=== PATIENT | female | born 1945 | race Caucasian/White ===

== ENCOUNTER 2024-08-10 12:57 | Outpatient (REF) | payer MEDICARE, SELFPAY ==
--- OUTSIDE RECORDS SUMMARY | 2024-08-10 13:04 | XMS_ITS | Encounter Summary ---
Author Organization [facility], Address [address] [place] [address] Phone Care Team Providers Care Channeler Outsole Name Role Phone Terrell Bull SILO MAN Primary Care Provider [phone] Encounter Details Date Type Department Care Team (Late st Contact Info) Description 06/05/2023 Documentation Only [facility], [address] [place] [address] Lizzie Anthony [address] [place] [phone] Social History Tobacco Use Types Packs/Day Years Used Date Smoking Tobacco: Never Assessed Comments Unknown Sex and Gender Information Value Date Recorded Sex Assigned at Not on file Legal Sex Female 11:20 AM EDT Gender Identity Not on file Sexual Orientation Not on file documented as of this encounter Plan of Treatment Not on file documented as of this encounter Visit Diagnoses Not on filedocumented in this encounter Care Teams Channeler Outsole Relationship Specialty Start Date End Date Terrell Bull NP [address] [place] [id number] PCP - General Nurse Practitioner 06/05/23 documented as of this encounter
[2024-08-10 15:49] LABS: Vitamin B12 715 pg/mL (200-900)
== END 2024-08-10 12:58 | disposition home or self-care (01) ==
LOC: HO.LAB 12:57
PROVIDERS: Psychiatry & Neurology Neurology; PCP Internal Medicine; Visit Provider Internal Medicine
DX: F03.90 Unspecified dementia, unspecified severity, without behavioral disturbance, psychotic disturbance, mood disturbance, and anxiety (principal)
CPT/HCPCS: 36415; 82607

== ENCOUNTER → 2024-08-19 06:32 | Outpatient (BNV) | payer MEDICARE, SELFPAY | PROVIDERS: Visit Provider Radiology Vascular & Interventional Radiology | DX: G93.89 Other specified disorders of brain (principal); I67.82 Cerebral ischemia | CPT/HCPCS: 70551 ==

== ENCOUNTER 2024-08-19 07:23 | Outpatient (REF) | payer MEDICARE, SELFPAY ==
--- NOTE | ~2024-08-19 | MR_ITS ---
CLINICAL HISTORY: MULTIFACTORIAL DEMENTIA MR Brain without gadolinium Comparison: None Findings: No restricted diffusion. No intra-axial mass or hemorrhage. No midline shift. No hydrocephalus. Vascular flow voids are intact. Moderate diffuse volume loss. Prominent patchy and confluent T2 signal prolongation within the white matter. The orbits are normal. The sinuses and mastoid air cells are clear. No focal bone lesion. IMPRESSION: No acute findings. Diffuse volume loss and moderately severe ischemic microangiopathy. This document has been electronically signed by: Nikhil Santacruz MD on 08/19/2024 11:10:16
== END 2024-08-19 07:24 | disposition home or self-care (01) ==
LOC: HO.MRI 07:23
PROVIDERS: Visit Provider Psychiatry & Neurology Neurology
DX: F41.1 Generalized anxiety disorder (principal); F03.90 Unspecified dementia, unspecified severity, without behavioral disturbance, psychotic disturbance, mood disturbance, and anxiety
CPT/HCPCS: 70551

== ENCOUNTER 2024-10-28 10:09 | Outpatient (AMB) | payer MEDICARE, SELFPAY ==
--- NOTE | 2024-10-28 10:36 | A.OFFVIS_ITS ---
Intake Visit Reasons: 2 Months/ Dementia Allergies No Known Allergies Allergy (Verified 10/25/24 11:55) Medication List - Last Reconciled 10/28/24 by Rachell Gonzalez MD aspirin 81 mg PO DAILY gabapentin 300 mg PO TID lamotrigine 150 mg PO BID lisinopril-hydrochlorothiazide 10-12.5 mg 1 tab PO DAILY lorazepam 0.5 mg PO DAILY losartan 12.5 mg PO DAILY meloxicam 7.5 mg PO DAILY memantine 5 mg PO BID 90 days memantine (Namenda) 5 mg PO BID omeprazole 20 mg PO DAILY simvastatin 20 mg PO DAILY venlafaxine ER (Effexor XR) 75 mg PO BID HPI Comments Details: 79 years old woman with moderately severe microvascular ischemic changes of brain, lumbar spinal stenosis and associated back pain, and multifactorial d ementia. She is presenting with neuropathy management and evaluation of insomnia. She reports improvement in neuropathic pain with a current 400 mg daily regimen of gabapentin. Nonetheless, she experiences periodic nocturnal neuropathic episodes impacting her sleep. She presented with a history of fragmented sleep patterns, nocturnal awakenings attributed both to neuropathy and physiological urinary frequency. The patient's hypertension is managed with lisinopril while her GERD symptoms are controlled with omeprazole. Her depressive and anxiety symptoms are largely mitigated with venlafaxine and lorazepam when needed. She remains monitored for these chronic conditions. [facility] Medical History (Updated 10/28/24 @ 10:43 by Rachell Gonzalez MD) GERD (gastroesophageal reflux disease) High cholesterol Depression with anxiety Multifactorial dementia Lumbar radiculitis Cerebral microvascular disease Peripheral neuropathy REM sleep behavior disorder Lumbar spinal stenosis Surgical History (Updated 10/25/24 @ 11:50 by Barbie Lawton MA) H/O lumbosacral spine surgery Review of Systems Const Details: - Neurological: Reports neuropathy and nocturnal discomfort; denies new onset of seizures or altered consciousness. - Sleep: Reports insomnia, frequent awakenings, difficulty returning to sleep. - Cardiovascular: Denies chest pain or palpitations. - Gastrointestinal: Denies new gastrointestinal symptoms; reports current management of GERD. - Musculoskeletal: Denies any acute or chronic musculoskeletal pain. - Psychiatric: Reports stable mood; denies current depressive episodes or heightened anxiety. - Other: Denies alcohol use at present. Physical Exam Neuro Other: She is alert and awake with normal spontaneity of speech fluency comprehension and affect. There was mild right hand shaking, rather of atypical type. She is walking cautiously with a cane. Assessment & Plan Assessment & Plan (1) Multifactorial dementia: Comment: [place] brain WO at [facility] [place]: Mod diff atrophy more so in PT areas, and mod to sev MVDNCV/EMG LE 10/16/15 MODERATE CHRONIC AXONAL SENSORY AND MOTOR PERIPHERAL NEUROPATHY IN THE LOWER EXTREMITIES. CHRONIC LEFT LUMBAR RADICULOPATHY.. NCV/EMG LE 08/24/14 ACUTE LEFT LOWER LUMBAR RADICULOPATHY. CHRONIC BILATERAL LOWER LUMBAR RADICULOPATHY. MILD TO MODERATE BILATERAL PERONEAL NEUROPATHY. MRI brain WO at [facility] in 2006: mod severe MVD MRI LS at [facility] [place] in 2014: Congenital mod severe multilevel spinal stenosis Code(s): F03.90 - Unspecified dementia, unspecified severity, without behavioral disturbance, psychotic disturbance, mood disturbance, and anxiety Category: Medical (2) Peripheral neuropathy: Code(s): G62.9 - Polyneuropathy, unspecified Category: Medical Qualifiers: Peripheral neuropathy type: polyneuropathy, unspecified Qualified Code(s): G62.9 - Polyneuropathy, unspecified (3) Cerebral microvascular disease: Code(s): I67.89 - Other cerebrovascular disease Category: Medical Plan Impression: a: Multifactorial dementia b: Peripheral neuropathy Rec: a: Memantine 5mg bid b: Avoid alcohol c: Stay socially and physically active d: Baby aspirin daily e: Gabapentin 300mg one at night only, avoid taking it during daytime Medications: Refilled memantine 5 mg PO BID 180 tabs 0RF 90 days Coding Level of Care Code Est Pt Level 4 (33956) Diagnoses Multifactorial dementia F03.90 Peripheral polyneuropathy G62.9 Peripheral neuropathy type: polyneuropathy, unspecified Cerebral microvascular disease I67.89
--- OUTSIDE RECORDS SUMMARY | 2024-10-28 11:16 | XMS_ITS | Encounter Summary ---
Author Organization [facility], Address [address] [place] [address] Phone Care Team Providers Care Program Support Specialist Name Role Phone Terrell Bull IGNITER CAPPER Primary Care Provider [phone] Encounter Details Date Type Department Care Team (Late st Contact Info) Description 06/05/2023 Documentation Only [facility], [address] [place] [address] Lizzie Anthony [address] [place] [phone] Social History Tobacco Use Types Packs/Day Years [...] on filedocumented in this encounter Care Teams Program Support Specialist Relationship Specialty Start Date End Date Terrell Bull NP [address] [place] [id number] PCP - General Nurse Practitioner 06/05/23 documented as of this encounter
--- OUTSIDE RECORDS SUMMARY | 2024-10-28 11:16 | XMS_ITS ---
Author Organization [facility] Care Team Providers Care Picker Machine Operator Name Role Phone Beulah No Unavailable Unavailable Tiffany Higuera Unavailable Unavailable Mayela Brown Unavailable Unavailable Yaima Soto Unavailable Unavailable Talita, Netta Unavailable Unavailable Allergies and adverse reactions Code CodeSystem Substance Reaction Severity StartDate Concern Status Contrast Dye Unknown Unknown active Care Team Name Role Address Phone Organization Dates Mayela Brown PCP [address], [address], [facility] (Office): [facility] 01/03/2017 - 01/18/2017 Beulah No [address] [place], [place], [facility], [facility] (Office): [facility] 01/03/2017 - 01/18/2017 Tiffany Higuera [address] [address], [facility] (Office): [facility] 01/03/2017 - 01/18/2017 Yaima Soto [address] [address], [facility] (Office): [facility] 01/03/2017 - 01/18/2017 Netta Sanon [address], [place], [address], [place] (Office): [facility] 01/03/2017 - 01/18/2017 Mental Status Section Date Assessment Total Score Description 01/18/2017 BIMS 13 cognitively int act CAM 0 No delirium ind icated PHQ-9 00 01/10/2017 BIMS 13 cognitively int act CAM 0 No delirium ind icated PHQ-9 00 Problems Problem # Description Date of onset Resolved Date Code CodeSystem Concern Status 1 ANXIETY DISORDER, UNSPECIFIED 01/03/[address] active 2 DIFFICULTY IN WALKING, NOT ELSEWHERE CLASSIFIED 01/03/[address] active 3 ENCOUNTER FOR OTHER ORTHOPEDIC AFTERCARE 01/03/[address] active 4 FOOT DROP, UNSPECIFIED FOOT 01/03/[address] active 5 LOW BACK PAIN 01/03/[address] act graeme 6 MUSCLE WEAKNESS (GENERALIZED) 01/03/[address] active 7 OTHER LACK OF COORDINATION 01/03/[address] active 8 PARKINSON'S DISEASE 01/03/2017 [address] C T active 9 POSTLAMINECTOMY SYNDROME, NOT ELSEWHERE CLASSIFIED 01/03/[address] active 10 SPINAL STENOSIS, LUMBOSACRAL REGION 01/03/[address] active Reason for Referral No Reasons for Referral Entered Social History Social History Observation Description Start Date End Date Code Code System Current Smoking Status Tobacco smoking consumption unknown 511513471 SNOMED CT Sex Assigned At Female 1945 [address]-9 [facility] Gender Identity Vital Signs Code Code System Vitals Name Values and Units Timing Information 9279-1 [facility] Respiratory Rate Value=20.0 Units=/m in 01/16/2017 8462-4 [facility] Blood Pressure-Diastolic Value=57 Un its=mmHg 01/16/2017 8480-6 [facility] Blood Pressure-Systolic Uekns=093 Un its=mmHg 01/16/2017 8310-5 [facility] Body Temperature Value=97.4 Units= F 01/16/2017 8867-4 LOINC Heart rate Value=64.0 Units=/min 04/2016 84835-5 [facility] O2 % BldC Oximetry Value=97.0 Units= % 01/16/2017 54831-5 [facility] Weight Yglbn=614.4 Units=Lbs 04/2016 32388-4 LOINC Pain Level Value=8.0 01/07/2017 8302-2 LOINC Height Value=64.0 Units=Inches 01/06/2017
== END 2024-10-28 10:50 | disposition home or self-care (01) ==
LOC: HO.HSM 10:25
PROVIDERS: PCP Internal Medicine; Referring Provider Internal Medicine; Visit Provider Psychiatry & Neurology Neurology
DX: F03.90 Unspecified dementia, unspecified severity, without behavioral disturbance, psychotic disturbance, mood disturbance, and anxiety (principal); G62.9 Polyneuropathy, unspecified; I67.89 Other cerebrovascular disease
CPT/HCPCS: 99214

== ENCOUNTER → 2024-10-28 10:09 | Outpatient (BNVA) | payer MEDICARE, SELFPAY | PROVIDERS: PCP Internal Medicine; Referring Provider Internal Medicine; Visit Provider Psychiatry & Neurology Neurology | DX: G62.9 Polyneuropathy, unspecified (principal); F03.90 Unspecified dementia, unspecified severity, without behavioral disturbance, psychotic disturbance, mood disturbance, and anxiety; I67.89 Other cerebrovascular disease | CPT/HCPCS: 99212 ==